=== PATIENT | male | born 1990 | race Two or more races ===

== ENCOUNTER → 2021-08-12 | Outpatient (REF) | payer BC, OTHER | LOC: M SMT 18:21 | PROVIDERS: ATTEND Urology | DX: Z30.2 Encounter for sterilization (principal) ==

== ENCOUNTER → 2021-10-23 | Outpatient (REF) | payer BC ==
[2021-10-23 14:00] LABS: SEMEN APPEARANCE OPAQUE (OPAQUE); SEMEN VISCOSITY LIQUID (LIQUID); WBC CONCENTRATION <=1 M/ml (<=1 M/ml)
== END ==
LOC: M SMT 13:31
PROVIDERS: ATTEND Urology
DX: Z30.2 Encounter for sterilization (principal)